=== PATIENT | female | born 1945 | race Caucasian/White ===

== ENCOUNTER → 2017-11-29 16:18 | Outpatient (CLI) | payer MEDICARE, OTHER, SELFPAY ==
--- NOTE | 2017-11-29 16:22 | DI.RAD.S_ITS ---
PROCEDURE: XR WRIST LT MIN 3V INDICATIONS: LEFT WRIST PAIN TECHNIQUE: 3 views of the wrist were acquired. COMPARISON: None. FINDINGS: Bones: No fractures or dislocations. No suspicious bony lesions. Scaphoid view: Not requested Soft tissues: No suspicious soft tissue calcifications. IMPRESSION: Normal wrist Dictated by: Vasquez Branch M.D. on 11/29/2017 at 16:48 Approved by: Vasquez Branch M.D. on 11/29/2017 at 16:50
== END ==
PROVIDERS: Family Provider Family Medicine; PCP Family Medicine; Visit Provider Family Medicine
DX: M25.532 Pain in left wrist (principal)
CPT/HCPCS: 73110

== ENCOUNTER → 2019-06-07 15:37 | Outpatient (CLI) | payer MEDICARE, OTHER, SELFPAY ==
--- NOTE | 2019-06-07 | DI.ECHO.S_ITS ---
[place] [facility]---------+ [facility] +---------+ : : [address] : : : : [id number] : : : : Phone: [phone]+ Echocardiogram Report + + :Name: TAYLA SANCHEZ Study Date: 06/07/2019 Height: 68 in : :[facility] Weight: 192 lb : : Gender: Female BSA: 2.0 m2 : :: 1945 Age: 74 yrs BP: 134/82 mmHg: :Reason For Study: MURMUR : : Performed By: [facility] Staff : :Referring: NIKKY THORNTON : + + Interpretation Summary 1) Normal left ventricular thickness, size, and systolic function (EF 60-65%). 2) There are no obvious focal wall motion abnormalities noted but poor endocardial definition reduces the sensitivity for the detection of such. 3) The right ventricle grossly appears normal in size with probable normal systolic function. 4) No significant valvular abnormalities. 5) No prior Echo available for comparison. Procedure: A two-dimensional transthoracic echocardiogram with color flow and Doppler was performed. The study quality was technically adequate. There is no prior echocardiogram noted for this patient. The patient was in normal sinus rhythm during the exam. Left Ventricle: The left ventricle is normal in size. There is normal left ventricular wall thickness. Left ventricular systolic function is normal. The ejection fraction is estimated to be 60-65%. There are no obvious focal wall motion abnormalities noted but poor endocardial definition reduces the sensitivity for the detection of such. Right Ventricle: The right ventricle is not well visualized. The right ventricle grossly appears normal in size with probable normal systolic function. Atria: The left atrial size is normal. Right atrial size is normal. The interatrial septum is intact with no evidence for an atrial septal defect. Mitral Valve: The mitral valve is normal in structure and function. There is no mitral regurgitation noted. Aortic Valve: The aortic valve is trileaflet. The aortic valve opens well. There is no aortic valve stenosis. No aortic regurgitation is present. Tricuspid Valve: The tricuspid valve is normal in structure and function. There is trace tricuspid regurgitation. Pulmonary artery pressures cannot be estimated because of the lack of a measurable TR jet velocity. Pulmonic Valve: The pulmonic valve is not well visualized. There is trace pulmonic regurgitation. Great Vessels: The aortic root is normal size. The dimensions of the ascending aorta are normal. The pulmonary artery is normal size. The IVC is of normal diameter and collapses greater than 50% with a sniff. This suggests a low right atrial pressure of 3 mm Hg. Pericardium/ Pleura There is no pericardial effusion. There is no pleural effusion. MMode/2D Measurements & Calculations LVIDd: 4.3 cm LVOT diam: 2.0 cm LVIDs: 2.9 cm Ao root diam: 2.8 cm FS: 32.3 % Aortic Jxn: 2.5 cm EPSS: 0.43 cm IVSd: 1.2 cm LVPWd: 1.00 cm LV bowden. diameter/BSA (cm/m^2): 2.1 LV sys. diameter/BSA (cm/m^2): 1.4 LA A2 area: 17.2 cm2 RA long axis: 3.9 cm LA A4 area: 12.4 cm2 RA area: 10.1 cm2 LA length (vol): 4.4 cm RA vol: 22.4 ml LA vol: 41.7 ml RA : 11.2 ml/m2 LA vol index: 20.8 ml/m2 TAPSE: 1.5 cm Doppler Measurements & Calculations Ao V2 max: 135.3 cm/sec LVOT Max Alejandro: 114.5 cm/sec Ao V2 mean: 97.1 cm/sec LV V1 max P.2 mmHg Ao max P.3 mmHg LV V1 VTI: 26.3 cm Ao mean P.2 mmHg ANGEL(I,D): 2.7 cm2 Ao V2 VTI: 31.2 cm ANGEL(V,D): 2.7 cm2 sev ratio: 0.84 ANGEL indexed to BSA (cm^2/m^2): 1.3 MV E max alejandro: 55.6 cm/sec PA V2 max: 81.8 cm/sec MV A max alejandro: 68.8 cm/sec PA V2 mean: 55.0 cm/sec MV E/A: 0.81 PA mean P.4 mmHg Med Peak E' Alejandro: 9.3 cm/sec PA Accel Time: 0.13 sec E/E' med: 6.0 Lat Peak E' Alejandro: 9.7 cm/sec E/E' lat: 5.7 E/e' average: 5.9 MV dec time: 0.28 sec SV(LVOT): 84.1 ml Reading Physician:04:49 PM
== END ==
PROVIDERS: Family Provider Family Medicine; PCP Family Medicine; Visit Provider Family Medicine
DX: R01.1 Cardiac murmur, unspecified (principal)
CPT/HCPCS: 93306

== ENCOUNTER → 2020-11-08 12:54 | Outpatient (CLI) | payer MEDICARE, OTHER, SELFPAY ==
--- NOTE | 2020-11-08 12:58 | DI.MRI.S_ITS ---
PROCEDURE: MR HEAD/BRAIN WO/W CON INDICATIONS: Migraine with aura, intractable TECHNIQUE: Noncontrast axial T1 spin echo, axial T2 fast spin echo, sagittal and axial FLAIR, coronal T2 fast spin echo, axial gradient echo, axial diffusion and ADC through the brain. After the administration of contrast, axial and coronal T1 spin echo with fat saturation through the brain. COMPARISON: [facility], CT, CT ENT SINUS WITHOUT CONTRAST, 06/14/2020, 11:02. [facility], CT, HEAD WITH AND WITHOUT CONTRAST, 03/04/2009, 8:29. FINDINGS: Image quality: Excellent. CSF spaces: Basal cisterns are patent. No extra-axial fluid collections. Ventricles are normal in size and shape. Brain: No midline shift. No intracranial bleeds or masses. No abnormal intracranial enhancement. There is cerebral volume loss for age. There is periventricular white matter chronic small vessel ischemic change. The brainstem appears normal. Diffusion-weighted images demonstrate no acute ischemic insults. No chronic ischemic insults. Normal intravascular flow voids are present. Skull and face: Calvarial marrow is normal in signal. Orbits appear normal. Note is made of bilateral lens replacements. Incidental note is made of hyperostosis frontalis. This is not considered to be pathologic in a woman of this age. Sinuses: Sinuses and mastoids appear clear. IMPRESSION: Unremarkable intracranial study, without an imaging explanation found for the patient's presenting history of headache. No masses or abnormal enhancement can be seen. Incidental note is made of: Hyperostosis frontalis Age-appropriate brain parenchymal volume loss Age-appropriate small vessel ischemic change Bilateral lens replacements Dictated by: Bernard Koroma M.D. on 11/08/2020 at 14:52 Approved by: Bernard Koroma M.D. on 11/08/2020 at 14:55
== END ==
PROVIDERS: Family Provider Family Medicine; PCP Family Medicine; Referring Provider Family Medicine; Visit Provider Family Medicine
DX: G43.119 Migraine with aura, intractable, without status migrainosus (principal); M85.2 Hyperostosis of skull
CPT/HCPCS: 70553

== ENCOUNTER → 2021-01-31 14:51 | Outpatient (CLI) | payer MEDICARE, OTHER, SELFPAY ==
--- NOTE | 2021-01-31 | DI.US.S_ITS ---
PROCEDURE: US ABDOMEN COMPLETE INDICATIONS: HEMATURIA, INTERSTITIAL CYSTITIS TECHNIQUE: Real-time scanning was performed of the abdominal and retroperitoneal organs, with image documentation. COMPARISON: [facility], US, ABDOMEN COMPLETE, 05/11/2013, 7:27. FINDINGS: Liver: Liver is normal in size and homogeneous in echotexture. Gallbladder: No gallstones identified. Normal gallbladder wall. No pericholecystic fluid. Negative sonographic Yadav sign. Biliary ducts: Intrahepatic bile ducts are non-dilated. Extrahepatic bile duct caliber measures 3.2 mm. Normal is 6-7 mm or less in diameter, or 10 mm or less post-cholecystectomy. Pancreas: Visualized portions of the pancreas are sonographically normal. Spleen: Spleen is normal in size and homogeneous in echotexture. Kidneys: Kidneys are normal in size and echotexture. Right kidney measures 12.4 cm long; left kidney measures 11.1 cm long. No hydronephrosis or nephrolithiasis. No solid masses. Aorta: Visualized aorta is normal in caliber at less than 3 cm. Iliacs: Proximal common iliac arteries are normal in caliber at less than 2.5 cm. IVC: Intrahepatic inferior vena cava is patent. Miscellaneous: No free abdominal fluid. IMPRESSION: No source for abdominal pain identified. Dictated by: Eddi Allen [facility] Interpreted: Vikas Mendez MD on 01/31/2021 at 16:19 Transcribed by: LARRY on 01/31/2021 at 16:21 Approved by: Naren Mendez M.D. on 02/04/2021 at 11:25
--- NOTE | 2021-01-31 | DI.RAD.S_ITS ---
PROCEDURE: XR LUMBAR SPINE 2-3V INDICATIONS: LOW BACK PAIN TECHNIQUE: 3 views of the lumbar spine were acquired. COMPARISON: None. FINDINGS: Bones: 5 [id number] vertebrae are present. Trace multilevel retrolisthesis. Severe multilevel disc degeneration, most notably at the L2-L3, L3-L4 and L5-S1 levels. Moderate L4-L5 and L5-S1 facet joint arthropathy. No vertebral body compression fractures. No suspicious bony lesions. Soft tissues: Overlying bowel gas pattern is normal. No suspicious soft tissue calcifications. IMPRESSION: Multilevel spondylosis. Dictated by: Eddi Allen [facility] Interpreted: Vikas Mendez MD on 01/31/2021 at 15:13 Transcribed by: LARRY on 01/31/2021 at 15:14 Approved by: Naren Mendez M.D. on 02/04/2021 at 11:26
== END ==
PROVIDERS: Family Provider Family Medicine; PCP Family Medicine; Referring Provider Internal Medicine; Visit Provider Internal Medicine
DX: N30.11 Interstitial cystitis (chronic) with hematuria (principal); M54.5 Low back pain; M47.896 Other spondylosis, lumbar region
CPT/HCPCS: 72100; 76700

== ENCOUNTER → 2021-02-07 09:39 | Outpatient (CLI) | payer MEDICARE, OTHER, SELFPAY ==
[2021-02-07 10:52] LABS: BUN Creatinine Ratio 29.2 (6-22); Blood Urea Nitrogen 19 mg/dL (7-17); Calcium 9.7 mg/dL (8.4-10.2); Carbon Dioxide 31 mmol/L (22-32); Chloride 102 mmol/L (98-107); Estimated Glomerular Filt Rate > 60.0 mL/min (>60); Glucose 97 mg/dL (80-110); HEMOLYSIS < 15 (0-50); Potassium 4.4 mmol/L (3.4-5.1); Sodium 139 mmol/L (137-145)
== END ==
PROVIDERS: Family Provider Family Medicine; PCP Family Medicine; Referring Provider Urology; Visit Provider Urology
DX: N39.0 Urinary tract infection, site not specified (principal); R10.9 Unspecified abdominal pain; R31.29 Other microscopic hematuria
CPT/HCPCS: 36415; 80048

== ENCOUNTER → 2021-02-10 15:31 | Outpatient (CLI) | payer MEDICARE, OTHER, SELFPAY ==
--- NOTE | 2021-02-10 15:32 | DI.CT.S_ITS ---
PROCEDURE: CT ABDOMEN PELVIS WO/W CON INDICATIONS: Microscopic hematuria,R flank pain,LLQ pain, UTIs TECHNIQUE: Optional 5 mm thick noncontrast images acquired from the diaphragm to the symphysis pubis. After the administration of intravenous contrast, 5 mm thick images acquired from the diaphragm to the symphysis pubis after a 10-minute delay. 2 mm thick coronal and sagittal reformats were then performed of the kidneys and ureters. For radiation dose reduction, the following was used: automated exposure control, adjustment of mA and/or kV according to patient size. COMPARISON: [facility], , US ABDOMEN COMPLETE, 01/31/2021, 14:42. FINDINGS: Image quality: Excellent. Lung bases: Lung bases are clear. Heart size is normal. Small hiatal hernia. Breast implant. Urinary system: Both kidneys are normal in size, without hydronephrosis or nephrolithiasis on pre-contrast images. No perinephric fat stranding. There is normal bilateral renal enhancement. Renal calyces appear normal in morphology when filled with contrast. Opacified portions of both ureters demonstrate normal caliber. No filling defect within the opacified portions of the ureters. A small portion of the left upper ureter is not opacified. Bladder wall thickness is normal. No calcified bladder stones. Other solid organs: Liver is normal in size and enhancement. Gallbladder is not distended. No calcified gallstones. Biliary system is non dilated. Pancreas enhances normally. Spleen is normal in size and enhancement. No adrenal nodules. Peritoneum and bowel: Bowel loops demonstrate normal wall thickness and caliber. Normal appendix. No free fluid or air. Nodes and vessels: No retroperitoneal or mesenteric adenopathy by size criteria. Aorta and inferior vena cava are normal in size. Abdominal wall: No ventral hernias. Pelvis: No pathologic free pelvic fluid. Anteverted uterus. No inguinal hernias or adenopathy. Bones: No suspicious bony lesions. DDD. No vertebral body compression fractures. IMPRESSION: 1. No kidney stones. No hydronephrosis. 2. No solid renal mass. 3. No upper urinary tract filling defect within the opacified portions. 4. Small hiatal hernia. Dictated by: Wood Coronado M.D. on 02/10/2021 at 16:37 Approved by: Wood Coronado M.D. on 02/10/2021 at 16:45
== END ==
PROVIDERS: Family Provider Family Medicine; PCP Family Medicine; Referring Provider Urology; Visit Provider Urology
DX: N39.0 Urinary tract infection, site not specified (principal); R10.32 Left lower quadrant pain; R10.9 Unspecified abdominal pain; R31.29 Other microscopic hematuria; K44.9 Diaphragmatic hernia without obstruction or gangrene
CPT/HCPCS: 74178; Q9967

== ENCOUNTER → 2021-06-23 10:21 | Outpatient (CLI) | payer MEDICARE, OTHER, SELFPAY ==
[2021-06-23 13:35] LABS: COVID19 -Nasal RAPID Negative (Negative)
== END ==
PROVIDERS: Family Provider Family Medicine; PCP Family Medicine; Visit Provider Nurse Practitioner Family
DX: Z20.822 Contact with and (suspected) exposure to COVID-19 (principal)
CPT/HCPCS: 87635; C9803

== ENCOUNTER 2021-06-24 08:00 | Day surgery (SDC) | payer MEDICARE, OTHER, SELFPAY ==
--- NOTE | 2021-06-24 | PATH_ITS ---
[facility] Accession Number: [id number] . 01 Material submitted: . colon - RANDOM COLON BIOPSIES . 01 Clinical history: . DX COLONOSCOPY . 02 Diagnosis: Random Colon, Biopsies: Mild melanosis coli. Negative for active or microscopic colitis. Negative for granulomata, dysplasia or malignancy. [facility] 06/27/2021 1050 Local . 02 Electronically signed: . Keanu Hutson MD, PhD, Pathologist NPI- [id number] . 01 Gross description: . RANDOM COLON BIOPSIES: Received in formalin are 2 fragment(s) of guerra, soft tissue measuring 0.3 x 0.2 x 0.2 cm to 0.2 x 0.2 x 0.2 cm submitted entirely in 1 cassette(s) /[facility] 06/25/2021 0844 Local . 02 Pathologist provided ICD-10: R15.9, R19.7, K63.89 . 02 CPT . 235356 Performed at: 01 [facility] [address], [place], [place] [id number] MD Praneeth Bull MD Phone: [phone] Performed at: 02 [facility] [address] [place], [place] [id number] MD Brenda Taylor MD Phone: [phone]
[2021-06-24 08:33] VITALS: BP 136/81; PULSE 73; RESP 16; TEMP 36.4; O2SAT 99; BMI 30.7
[2021-06-24] MEDS: SODIUM CHLORIDE 0.9% 1,000 ML 84 ML IV (08:53)
--- NOTE | 2021-06-24 09:01 | PM.HP.1 ---
History of Present Illness History of Present Illness Date Patient Seen: 06/24/21 Time Patient Seen: 09:01 Chief complaint: DX COLONSCOPY Narrative: I reviewed my note from April 21. No significant changes. Patient History Medical History Atrophic vaginitis Cancer of breast Chronic urinary tract infection History of breast cancer History of tobacco use Inflammatory bowel disease Interstitial cystitis Left lower quadrant abdominal pain Microscopic hematuria Recurrent urinary tract infection Right flank pain Vaginal pain Vaginal ulceration Surgical History H/O mastectomy History of breast biopsy History of knee replacement Family & Social History Family History Mother Cancer Social History: household members spouse Tobacco & Substance use: Smoking Status Former smoker alcohol intake current Substance Use Type does not use Meds Home Medications and Allergies Home Medications Medication Instructions Recorded Confirmed Type acetaminophen 500 mg tablet 500 mg PO DAILY tab 02/05/21 06/24/21 History (Tylenol Extra Strength) meloxicam 15 mg tablet 15 mg PO DAILY 02/05/21 06/24/21 History omeprazole 40 mg capsule,delayed 40 mg PO DAILY 02/05/21 06/24/21 History release spironolactone 50 mg tablet 50 mg PO DAILY 02/05/21 06/24/21 History zolpidem 5 mg tablet (Ambien) 2.5 mg PO BEDTIME tab 02/05/21 06/24/21 History phenazopyridine 99.5 mg tablet 99.5 mg PO TID 06/24/21 06/24/21 History Allergies Allergy/AdvReac Type Severity Reaction Status Date / Time Sulfa (Sulfonamide Allergy Mild Hives Verified 06/24/21 08:28 Antibiotics) levofloxacin Allergy Unknown Verified 06/24/21 08:28 codeine AdvReac Mild NAUSEA/VOMI Verified 06/24/21 08:28 TING Review of Systems Review of Systems ROS: Yes All systems reviewed with the patient and are negative except as otherwise documented Exam Vital Signs (past 8 hours): - 06/24/21 08:33 Temperature 97.5 F L Pulse Rate 73 Respiratory Rate 16 Blood Pressure 136/81 Pulse Oximetry 99 Oxygen Delivery Method Room Air Const General: cooperative and comfortable Orientation: alert HENMT Head: normocephalic Ears: external ears normal Nose: external nose normal Face and sinus: normal facial exam Mouth: oral mucosae normal Eyes General: appearance normal, both eyes and all related structures Neck Neck: normal visual inspection Chest Chest: normal inspection of the chest Resp Effort & Inspection: normal respiratory effort Cardio Rate: regular rate GI Inspection: normal to inspection Skin General: no rashes or lesions noted and No jaundice Neuro General: patient alert and moves all extremities Cognition: normal cognition Speech: speech normal Extrem General: no pedal edema Psych Appearance: grossly normal Assessment & Plan Assessment & Plan narrative: 76-year-old female with a history of diarrhea personal history of unknown histology colon polyps and some intermittent fecal seepage. Colonoscopy is pursued today. Time Spent With Patient Critical Care time: I spent a total of [] minutes of critical care time on this patient's care today; this time is exclusive of procedural time.
--- NOTE | 2021-06-24 10:11 | SUR.OPER ---
scope not innsuflating - changed scopes- original stat time 15 min prior
--- NOTE | 2021-06-24 10:34 | PM.OP.COLON ---
Operative Date/Time/Diagnoses Date of procedure: 06/24/21 Time of procedure: 10:35 Pre-op diagnosis: Diarrhea personal history of unknown histology colon polyps intermittent anal seepage Post-op diagnosis: same Procedure & Clinicians Study performed: Colonoscopy with biopsies Same procedure as scheduled: Yes Indications: Diarrhea personal history of unknown histology polyps and intermittent anal seepage Surgeon: Luiz Salazar Procedure Notes SCOAP/Timeout: Done Procedure in detail: After the risks and benefits were explained, written and verbal informed consent was obtained. The patient was brought into the procedure room and placed into the left lateral decubitus position. Please see nurse intermediate card tender sedation details. Digital rectal examination was accomplished. The scope was introduced into the patient and advanced under direct visualization to the cecum as identified by the appendiceal orifice and ileocecal valve. The scope was slowly withdrawn to carefully examine the mucosa for any defects or lesions. Comprehensive imaging was accomplished throughout the rectum including the dentate line. The colon was decompressed, the scope was then removed from the patient who tolerated the procedure well. Bowel prep adequate Initially the procedure was attempted with an adult colonoscope however the scope was malfunctioning and was not delivering CO2 insufflation as expected. We withdrew the scope swapped out for a 2nd adult colonoscope but could not advance beyond splenic flexure with this scope secondary to looping. We swapped out for a 3rd pediatric scope and with some difficulty we were able to navigate to cecum. Procedure time was prolonged secondary to colon tortuosity difficult defecation and technical difficulties with the original scope Scope withdrawal time: 6 minutes Sedation minutes: 41 Complications: none Impression: Tortuous colon as described above. No significant polyps mass lesions or inflammatory features identified throughout. Random colon biopsies were taken for exclusion of microscopic disease. Prior to initiation of sedation digital rectal examination was accomplished. This revealed acceptable resting anal sphincter tone. Patient was able to contract the external anal sphincter mechanism but this was subjectively somewhat weak no mass lesions detected. Endoscopic diagnosis 1. Challenging navigation 2. Slightly reduced external anal sphincter strength Post-procedure Plan for aftercare: 1. Await histopathology 2. Should diarrhea persist, intermittent Imodium can be attempted to reduce stool frequency and improved consistency. Disposition: PACU
[2021-06-24 10:37] VITALS: BP 123/67; PULSE 69; RESP 19; TEMP 36.2; O2SAT 96
[2021-06-24 10:42] VITALS: BP 117/68; PULSE 73; RESP 15; O2SAT 96
[2021-06-24 10:47] VITALS: BP 119/72; PULSE 70; RESP 19; O2SAT 98
[2021-06-24 10:53] VITALS: BP 119/70; PULSE 64; RESP 14; TEMP 36; O2SAT 99
== END 2021-06-24 11:07 | disposition home or self-care (01) ==
PROVIDERS: Family Provider Family Medicine; PCP Family Medicine; Referring Provider Internal Medicine Gastroenterology; Visit Provider Internal Medicine Gastroenterology
PROC: 0DJD8ZZ Inspection of Lower Intestinal Tract, Via Natural or Artificial Opening Endoscopic (ICD-10-PCS; CPT 45378; principal; 2021-06-24 10:00)
DX: R19.7 Diarrhea, unspecified (principal); R15.1 Fecal smearing; Z86.010 Personal history of colon polyps; K63.89 Other specified diseases of intestine
CPT/HCPCS: 45380; J2704

== ENCOUNTER → 2023-02-24 07:06 | Outpatient (CLI) | payer MEDICARE, OTHER, SELFPAY ==
--- NOTE | 2023-02-24 | DI.CT.S_ITS ---
PROCEDURE: CT KIDNEY URETER BLADDER (KUB) INDICATIONS: DYSURIA / HEMATURIA TECHNIQUE: Axial sections were acquired from the lung bases to the pubic symphysis. Coronal and sagittal reformats were performed. For radiation dose reduction, the following was used: automated exposure control, adjustment of mA and/or kV according to patient size. COMPARISON: None. FINDINGS: Image quality: Excellent. Lung bases: Unremarkable. Heart: No significant findings. URINARY: Right Kidney: No stones or hydronephrosis. Right Ureter: No hydroureter. Left Kidney: No stones or hydronephrosis. Left Ureter: No hydroureter. Bladder: Normal wall thickness. No stones. ABDOMEN: Liver: Unremarkable. Gallbladder: Unremarkable. Biliary ducts: Unremarkable. Pancreas: Unremarkable. Spleen: Unremarkable. Adrenal Glands: Unremarkable. Stomach and Bowel: Stomach, small bowel loops, and colon are unremarkable. Small hiatal hernia. Peritoneum: No abnormal intraperitoneal fluid. No free air. Ventral Wall: No hernia. Abdominal Nodes: No enlarged retroperitoneal or mesenteric lymph nodes. Vessels: Aorta and inferior vena cava are normal in size. PELVIS: Pelvic Organs: Unremarkable. Pelvic Nodes: Unremarkable. Miscellaneous: No inguinal hernias are seen. Bones: Degenerative disc disease, most prominent L2-3, with grade 1 retrolisthesis, disc osteophyte complex and facet arthrosis causing moderate spinal canal narrowing. IMPRESSION: No nephrolithiasis or hydronephrosis. Moderate spinal canal stenosis at L2-3. Dictated by: Madan Belle M.D. on 02/24/2023 at 8:27 Approved by: Madan Belle M.D. on 02/24/2023 at 8:32
== END ==
PROVIDERS: Family Provider Family Medicine; PCP Family Medicine; Referring Provider Family Medicine; Visit Provider Family Medicine
DX: R30.0 Dysuria (principal); R31.9 Hematuria, unspecified; N39.9 Disorder of urinary system, unspecified; M48.061 Spinal stenosis, lumbar region without neurogenic claudication; K44.9 Diaphragmatic hernia without obstruction or gangrene
CPT/HCPCS: 74176

== ENCOUNTER → 2023-04-19 09:16 | Outpatient (CLI) | payer MEDICARE, OTHER, SELFPAY ==
[2023-04-19 09:49] LABS: Appearance Urine UA CLEAR; Bilirubin Urine UA NEGATIVE (NEGATIVE); Color Urine UA YELLOW; Glucose Urine UA NEGATIVE (Negative); Ketones Urine UA NEGATIVE (NEGATIVE); Leukocyte Esterase Urine UA NEGATIVE (NEGATIVE); Nitrite Urine UA NEGATIVE (Negative); Occult Blood Urine UA NEGATIVE (Negative); Protein Urine UA NEGATIVE (Negative); Urobilinogen Urine UA 0.2 E.U./dL (0.2)
[2023-04-19 09:51] LABS: Bacteria Urine None Seen; Culture Indicated Urine Cult Not Indicated; RBC Urine None Seen (0-5/HPF); Squamous Epithelial Cell Urine None Seen (0-5/HPF); WBC Urine None Seen (0-5/HPF)
== END ==
PROVIDERS: Family Provider Family Medicine; PCP Family Medicine; Referring Provider Urology; Visit Provider Urology
DX: N39.0 Urinary tract infection, site not specified (principal)
CPT/HCPCS: 81001

== ENCOUNTER → 2023-07-15 08:54 | Outpatient (CLI) | payer MEDICARE, OTHER, SELFPAY ==
--- NOTE | 2023-07-15 08:57 | DI.US.S_ITS ---
PROCEDURE: US ABDOMEN LIMITED INDICATIONS: Elevated bilirubin TECHNIQUE: Real-time focused scanning was performed of the abdomen, with image documentation. COMPARISON: [facility], CT, CT KIDNEY URETER BLADDER (KUB), 02/24/2023, 7:19. [facility], US, US ABDOMEN COMPLETE, 01/31/2021, 14:42. FINDINGS: Evaluation of the liver is limited, secondary to limited windows. The liver demonstrates mildly enlarged size. The liver demonstrates generalized mildly increased echogenicity. This decreases ultrasound sensitivity for detection of hepatic masses. The IVC and the portal vein are patent. Likely sludge can be seen within the gallbladder. No shadowing stones are seen. The gallbladder wall is not thickened, measuring 3 mm or less. No specific pericholecystic fluid is seen. The sonographic Yadav sign is negative. There is no biliary dilatation, the common bile duct measures 3 mm. No significant pancreatic abnormality is seen on these images. Note is made that the pancreas is mildly echogenic. No abnormal free fluid can be seen. IMPRESSION: Mildly enlarged, mildly fatty liver. Sludge is seen within the gallbladder, without additional sonographic signs of cholecystitis. No biliary dilatation. Dictated by: Bernard Koroma M.D. on 07/15/2023 at 10:57 Approved by: Bernard Koroma M.D. on 07/15/2023 at 10:59
== END ==
LOC: US 08:55
PROVIDERS: Family Provider Family Medicine; PCP Family Medicine; Referring Provider Family Medicine; Visit Provider Family Medicine
DX: E80.6 Other disorders of bilirubin metabolism (principal); K76.0 Fatty (change of) liver, not elsewhere classified; K82.8 Other specified diseases of gallbladder
CPT/HCPCS: 76705

== ENCOUNTER → 2024-08-01 08:03 | Outpatient (CLI) | payer MEDICARE, OTHER, SELFPAY ==
--- NOTE | 2024-08-01 08:05 | DI.CT.S_ITS ---
PROCEDURE: CT SINUS SCREEN WO CON INDICATIONS: Other malaise TECHNIQUE: Noncontrast 3.0 mm axial images acquired from the frontal sinuses to the mid-sella, with coronal and sagittal reformats. For radiation dose reduction, the following was used: automated exposure control, adjustment of mA and/or kV according to patient size. COMPARISON: None. FINDINGS: Image quality: Excellent. Maxillary Sinuses: No bony remodeling or destruction. Sinuses are clear. Ethmoid Air Cells: No bony remodeling or destruction. Sinuses are clear. Sphenoid Sinuses: No bony remodeling or destruction. Sinuses are clear. Frontal Sinuses: No bony remodeling or destruction. Sinuses are clear. Ostiomeatal Complexes: Ostiomeatal complexes are patent. No Kathie cells. Miscellaneous: Visualized intra-orbital contents are normal. Lens replacements. No reynaldo bullosa or paradoxical turbinate curvature. No significant nasal septal deviation. IMPRESSION: The paranasal sinuses are clear. Dictated by: Cesar Hewitt M.D. on 08/01/2024 at 9:54 Approved by: Cesar Hewitt M.D. on 08/01/2024 at 9:59
== END ==
PROVIDERS: Family Provider Family Medicine; PCP Family Medicine; Referring Provider Family Medicine; Visit Provider Family Medicine
DX: J01.90 Acute sinusitis, unspecified (principal)
CPT/HCPCS: 70486

== ENCOUNTER 2025-04-04 13:08 | Observation (INO) | payer MEDICARE, OTHER, SELFPAY ==
[2025-04-04] VITALS (8 sets, daily range): BP systolic 130–154; BP diastolic 66–77; PULSE 56–73; RESP 15–22; TEMP 36.3–36.6; O2SAT 95–98; BMI 29.8; BMI 29.9
--- NOTE | 2025-04-04 13:29 | ED_ITS ---
HPI - Neuro Symptoms/Deficit General Chief Complaint: Neuro Symptoms/Deficit Stated Complaint: numbness in chin, arm, legs right side Time Seen by Provider: 04/04/25 13:18 Source: patient Mode of arrival: Family Vehicle History of Present Illness HPI Narrative: Patient here with . Has had intermittent 1 hour episodes of right facial numbness right arm and leg numbness. This is her 5th episode today. This episode started at 9:00 a.m. this morning but has now resolved. The right jaw area is nearly gone with the numbness. No headache no chest pain. No prior history of heart attack strokes or diabetes. Related Data Home Medications ?Medication ?Instructions ?Recorded ?Confirmed acetaminophen 500 mg tablet 500 mg PO DAILY 02/05/21 0 04/04/25 (Tylenol Extra Strength) meloxicam 15 mg tablet 15 mg PO DAILY 02/05/2103/13 zolpidem 5 mg tablet (Ambien) 2.5 mg PO BEDTIME 04/04/25 difluprednate 0.05 % eye drops 1 drp EYE-LEFT BID 03/1304/04/25 dorzolamide 22.3 mg-timolol 6.8 1 drp EYE-LEFT BID 04/04/25 mg/mL eye drops latanoprost 0.005 % eye drops 1 drp EYE-LEFT QPM 04/0404/04/25 valacyclovir 1 gram tablet 1,000 mg PO DAILY 04/04/25 04/04/25 Allergies Allergy/AdvReac Type Severity Reaction Status Date / Time Sulfa (Sulfonamide Allergy Mild Hives Verified 04/01/23 08:52 Antibiotics) levofloxacin Allergy Unknown Verified 04/01/23 08:52 Penicillins AdvReac Severe Diarrhea Verified 04/20/23 10:19 codeine AdvReac Mild NAUSEA/VOMI Verified 04/01/23 08:52 TING Review of Systems Review of Systems Narrative: GENERAL: Negative chills, fatigue, malaise, fever, sweats. HEENT: Negative sinus pain, ear pain, sore throat RESPIRATORY: Negative dyspnea, cough CARDIOVASCULAR: Negative chest pain, palpitations GASTROINTESTINAL: Negative vomiting, nausea, abdominal pain : Negative dysuria, frequency, hematuria MUSCULOSKELETAL: Negative muscle or bony pain SKIN: Negative rash, skin lesions NEUROLOGIC: Negative weakness, positive numbness ROS Unobtainable: All systems reviewed & are unremarkable except as noted in HPI and below Patient History Medical History (Updated 04/04/25 @ 18:22 by Kyle Anne MD) Herpes zoster of eye Migraine Asymptomatic microscopic hematuria Atrophic vaginitis Vaginal pain Recurrent urinary tract infection Vaginal ulceration History of breast cancer History of tobacco use Microscopic hematuria Left lower quadrant abdominal pain Right flank pain Interstitial cystitis Inflammatory bowel disease Chronic urinary tract infection Cancer of breast Surgical History (Updated 04/04/25 @ 18:23 by Kyle Anne MD) History of tonsillectomy History of knee replacement H/O mastectomy History of breast biopsy Family History (Updated 04/04/25 @ 18:23 by Kyle Anne MD) Mother Cancer CAD (coronary artery disease) Father Cirrhosis Social History marital status: household members: spouse Smoking Status: Former smoker alcohol intake: current caffeine: Yes (pepsi) Exam Narrative Exam Narrative: GENERAL: in no distress, not toxic not dyspneic HEAD: Normocephalic. EYES: Pupils equal round ENT: Mucous membranes moist. NECK: Trachea midline. CARDIOVASCULAR: Regular rate and rhythm RESPIRATORY: Clear to auscultation. Breath sounds equal bilaterally. No wheezes, rales, or rhonchi. GASTROINTESTINAL: Abdomen soft, non-tender EXTREMITIES: No gross deformities. BACK: No flank tenderness. NEURO: AOx4. 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 SKIN: Warm and dry PSYCH: Not anxious, is cooperative Initial Vital Signs Initial Vital Signs: Vital Signs Temperature 97.9 F 04/04/25 13:09 Pulse Rate 64 04/04/25 13:09 Respiratory Rate 16 04/04/25 13:09 Blood Pressure 151/75 H 04/04/25 13:09 Pulse Oximetry 97 04/04/25 13:09 Oxygen Delivery Method Room Air 04/04/25 13:09 Scores NIH Stroke Scale Level of Conciousness: Alert, keenly responsive Ask month/age: Answers both questions correctly. Open/close eyes, close hand: Performs both tasks correctly Best gaze horizontal: Normal Visual johnson: No visual loss Facial palsy: Normal symetrical movement Left arm drift: No drift for full 10 sec Right arm drift: No drift for full 10 sec Left leg drift: No drift for full 5 sec Right leg drift: No drift for full 5 sec Limb ataxia: Absent Sensory on face/arms/legs: Normal, no sensory loss Best language: No aphasia, normal Dysarthria: Normal Extinction or inattention: No abnormality Total NIH Stroke scale score: 0 Course Orders Ordered: Meloxicam (Meloxicam 7.5 Mg Tablet) 15 mg PO DAILY [facility] Last Admin: 04/05/25 08:39 Dose: 15 mg Documented By: JASON Naloxone HCl (Naloxone 0.4 Mg/Ml Vial) 0.2 mg IV Q2MIN PRN PRN Reason: Opiate Reversal Sodium Chloride (Sodium Chloride 0.9% Flush) 10 ml IV BID [facility] Last Admin: 04/05/25 08:42 Dose: 10 ml Documented By: JASON Sumatriptan Succinate (Sumatriptan 25 Mg Tablet) 50 mg PO Q2H PRN PRN Reason: Face Numbness Last Admin: 04/05/25 08:38 Dose: 50 mg Documented By: Admin: 04/04/25 20:33 Dose: 50 mg Documented By: PAKO Valacyclovir HCl (Valacyclovir 500 Mg Tablet) 1,000 mg PO DAILY [facility] Last Admin: 04/05/25 08:39 Dose: 1,000 mg Documented By: JASON Zolpidem Tartrate (Zolpidem 5 Mg Tablet) 2.5 mg PO BEDTIME [facility] Last Admin: 04/04/25 22:15 Dose: 2.5 mg Documented By: PAKO Discontinued Medications Sodium Chloride (Normal Saline 0.9%) 500 mls @ 1,000 mls/hr IV BOLUS ONE Stop: 04/04/25 15:27 Last Admin: 04/04/25 18:35 Dose: Not Given Documented By: TIM Vital Signs Vital signs: Vital Signs - 8 hr 04/04/25 13:09 04/04/25 13:13 04/04/25 13:14 Temperature 97.9 F Pulse Rate 64 73 73 Respiratory Rate 16 Blood Pressure 151/75 H Pulse Oximetry 97 97 98 Oxygen Delivery Method Room Air 04/04/25 13:14 04/04/25 13:30 04/04/25 13:30 Temperature Pulse Rate 57 L Respiratory Rate 22 Blood Pressure 151/75 H 138/74 Pulse Oximetry 96 Oxygen Delivery Method Room Air 04/04/25 14:01 04/04/25 14:09 04/04/25 14:09 Temperature Pulse Rate 63 60 Respiratory Rate 17 Blood Pressure 153/71 H Pulse Oximetry 98 96 Oxygen Delivery Method Room Air 04/04/25 14:30 04/04/25 14:30 Temperature Pulse Rate 56 L Respiratory Rate 18 Blood Pressure 154/66 H Pulse Oximetry 95 Oxygen Delivery Method MDM - Neuro Symptoms/Deficit Lab Data 04/04/25 13:25 04/04/25 13:25 Labs: Lab Results 04/04/25 04/04/25 Range/Units 13:25 13:57 WBC 9.2 (4.5-11.0) X10^3/uL RBC 4.85 (4.0-5.2) X10^6/uL Hgb 15.0 (12.0-16.0) g/dL Hct 44.2 (36-46) % MCV 91.1 (80-100) fL MCH 30.9 (26-34) PG MCHC 34.0 (30-36) % RDW 14.3 (11.6-14.8) % Plt Count 188 (150-400) X10^3/uL Neut % (Auto) 73.8 (50-75) % Lymph % (Auto) 19.4 L (25-40) % Vil[place] % (Auto) 5.5 (3-14) % Eos % (Auto) 1.0 L (2-4) % Baso % (Auto) 0.3 (0-2) % Neut # (Auto) 6800 (8978-9647) /uL Lymph # (Auto) 1800 (7282-9680) /uL [place] # (Auto) 500 (0-900) /uL Eos # (Auto) 100 (0-450) /uL Baso # (Auto) 0 (0-100) /uL PT 10.6 (9.4-12.5) SECONDS INR 0.9 (0.9-1.3) APTT 27 (25.1-36.5) SECONDS Sodium 138 (137-145) mmol/L Potassium 4.1 (3.4-5.1) mmol/L Chloride 105 (98-107) mmol/L Carbon Dioxide 26 (22-32) mmol/L BUN 18 H (7-17) mg/dL Creatinine 0.69 (0.52-1.04) mg/dL Estimated GFR > 60 (>60) mL/min BUN/Creatinine Ratio 26.1 H (6-22) Glucose 103 H (70-99) mg/dL Calcium 9.0 (8.4-10.2) mg/dL Total Bilirubin 0.8 (0.2-1.3) mg/dL AST 29 (14-36) IU/L ALT 20 (<35) IU/L Alkaline Phosphatase 84 (38-126) U/L Total Creatine Kinase 60 (30-135) U/L Troponin I < 0.012 (0.01-0.034) ng/mL Total Protein 7.0 (6.3-8.2) g/dL Albumin 4.3 (3.5-5.0) g/dL Globulin 2.7 (1.7-4.1) g/dL Albumin/Globulin Ratio 1.6 (1.0-2.8) Urine Color Yellow Urine Appearance Clear Urine pH 6.0 (4.5-8.0) Ur Specific Liberal 1.010 (1.000-1.035) Urine Protein Negative (Negative) Urine Glucose (UA) Negative (Negative) g/dL Urine Ketones Negative (NEGATIVE) Urine Occult Blood Negative (Negative) Urine Nitrate Negative (Negative) Urine Bilirubin Negative (NEGATIVE) Urine Urobilinogen 1.0 (0.2) E.U./dL Ur Leukocyte Esterase Negative (NEGATIVE) Urine RBC 0-1/hpf (0-5/HPF) Urine WBC 0-1/hpf (0-5/HPF) Ur Squamous Epith Cells 0-1 /hpf (0-5/HPF) Urine Bacteria Occasional (0-1) (None) Urine Mucus 1+ H (Negative) Ur Culture Indicated? Cult not indicated Vol Urine Centrifuged 10ml (spun) Imaging Data CT scan - head: Radiologist's Impression: [address] [address] [address] Scan Report Signed Patient: Berkley Handley MR#: [id number] : 1945 Acct:[id number] Age/Sex: 79 / F Date of Service: 04/04/25 Loc: ED Accession Number: [id number] Procedure: CT head/brain wo con Ordering Provider: Tonio Gill MD PROCEDURE: CT HEAD/BRAIN WO CON INDICATIONS: Right side numbness TECHNIQUE: Noncontrast 4.5 mm thick angled axial sections acquired from the foramen magnum to the vertex, with coronal and sagittal reformats. For radiation dose reduction, the following was used: automated exposure control, adjustment of mA and/or kV according to patient size. COMPARISON: None. FINDINGS: Image quality: Diagnostic. CSF spaces: Basal cisterns are patent. No extra-axial fluid collections. The ventricles are symmetric in size and shape. Brain: No intracranial bleeds or mass effect. There is cerebral volume loss, with resultant ventricular and sulcal prominence. There are periventricular and deep white matter chronic small vessel ischemic changes. There is intracranial internal carotid artery atherosclerosis. Skull and face: Incidental note made of the presence of hyperostosis frontalis. Calvarium and visualized facial bones appear intact, without suspicious lesions. Sinuses: Visualized sinuses and mastoids are clear. IMPRESSION: No acute intracranial pathology. Dictated by: Dino Williamson M.D. on 04/04/2025 at 13:57 Approved by: Dino Williamson M.D. on 04/04/2025 at 13:59 CTA - brain/neck: Radiologist's Impression: [place] [address] CT Scan Report Signed Patient: Berkley Handley MR#: [id number] : 1945 Acct:[id number] Age/Sex: 79 / F Date of Service: 04/04/25 Loc: ED Accession Number: [id number] Procedure: CT angio head and neck Ordering Provider: Tonio Gill MD PROCEDURE: CT ANGIO HEAD AND NECK INDICATIONS: Right side numbness TECHNIQUE: After the administration of intravenous contrast, 1 mm thick sections acquired from the aortic arch through the [place] of [place]. 3-dimensional brnzbib-lpuzolgzw-elmnszmity (MIP) and/or volume rendering reformats were acquired of the central intracranial vasculature and neck separately. For radiation dose reduction, the following was used: automated exposure control, adjustment of mA and/or kV according to patient size. COMPARISON: None. FINDINGS: Image quality: Diagnostic. Cerebral CT Angiogram: Internal carotid arteries: No acute findings. Intracranial ICA are patent with no significant stenosis. No occlusion. No aneurysm. Anterior cerebral arteries: Unremarkable. No significant stenosis. No occlusion. No aneurysm. Middle cerebral arteries: Unremarkable. No significant stenosis. No occlusion. No aneurysm. Posterior cerebral arteries: Unremarkable. No significant stenosis. No occlusion. No aneurysm. Basilar artery: Unremarkable. No significant stenosis. No occlusion. No aneurysm. Vertebral arteries: Unremarkable as visualized. Dural venous sinuses: Unremarkable given phase of enhancement. Other: Arterial phase appearance of the brain parenchyma is unremarkable. Neck CT Angiogram: Internal carotid arteries: Unremarkable. No significant stenosis. No dissection or occlusion. Common carotid arteries: Unremarkable. No significant stenosis. No dissection or occlusion. External carotid arteries: Unremarkable. No occlusion. Vertebral arteries: Unremarkable. No significant stenosis. No dissection or occlusion. Aortic Arch and Mediastinum: Partially visualized aortic arch unremarkable without evidence of aneurysm. Origins of the great vessels unremarkable. Other: Arterial phase soft tissues of the neck and chest are unremarkable. IMPRESSION: No significant intracranial arterial abnormality is seen. No significant abnormality is seen within the arteries of the neck. Any quantitative measurements of stenosis were performed using NASCET criteria. Dictated by: Dnio Williamson M.D. on 04/04/2025 at 13:59 Approved by: Dino Williamson M.D. on 04/04/2025 at 14:01 [facility] Narrative Medical decision making narrative: Patient here with . Has had intermittent 1 hour episodes of right facial numbness right arm and leg numbness. This is her 5th episode today. This episode started at 9:00 a.m. this morning but has now resolved. The right jaw area is nearly gone with the numbness. No headache no chest pain. No prior history of heart attack strokes or diabetes. MDM After history and exam, CT head CT angiogram head and neck normal saline EKG CBC CMP PT INR PTT troponin Differential considered: Includes but not limited to TIA stroke Medical records reviewed: No recent visit for this complaint Lab Test results independently reviewed as above. Pertinent findings: WBC 9.2 hemoglobin 15 hematocrit 44, sodium 138 potassium 4.1 BUN 18 creatinine 0.69 troponin less than 0.012 Independently reviewed EKG sinus rhythm rate [address]-elevation or depression Imaging studies independently reviewed: CT head CT angiogram head and neck no acute finding Consultations: 2:43 p.m.. Spoke with hospitalist, Dr. Anne, will admit patient Re-evaluations: 2:30 p.m.. Updated patient results. She does agree and understand need for admission. We will need balance workup for TIA Discussion: Appropriate for admission for balance workup for TIA. Including MRI and echocardiogram, no neurology consult indicated at this time. Symptoms have resolved. Patient outside window for TNK and in addition symptoms have resolved. Diagnosis: TIA Stroke Core Measures Exclusion Criteria TPA in CVA: Symptom Onset >3 or 4.5 Hours Discharge Plan Departure Patient Disposition: Admitted as Observation Clinical Impression: Brain TIA Admit Date/Time: 04/04/25 14:44 Admit Provider: Kyle Anne
[2025-04-04 13:42] LABS: Add Manual Diff / Slide Review NO; Hematocrit 44.2 % (36-46); Hemoglobin 15.0 g/dL (12.0-16.0); Lymphocytes Absolute Auto 1800 /uL (1100-4500); Mean Corpuscular HGB Conc 34.0 % (30-36); Mean Corpuscular Hemoglobin 30.9 PG (26-34); Mean Corpuscular Volume 91.1 fL (80-100); Platelet Count 188 X10^3/uL (150-400)
[2025-04-04 13:49] LABS: INR 0.9 (0.9-1.3); Prothrombin Time 10.6 SECONDS (9.4-12.5)
[2025-04-04 13:52] LABS: PTT Partial Thromboplastin Tim 27 SECONDS (25.1-36.5)
[2025-04-04 13:54] LABS: Alanine Aminotransferase 20 IU/L (<35); Albumin 4.3 g/dL (3.5-5.0); Albumin Globulin Ratio 1.6 (1.0-2.8); Alkaline Phosphatase 84 U/L (38-126); Blood Urea Nitrogen 18 mg/dL (7-17); Calcium 9.0 mg/dL (8.4-10.2); Carbon Dioxide 26 mmol/L (22-32); Chloride 105 mmol/L (98-107); Creatine Kinase 60 U/L (30-135); Estimated Glomerular Filt Rate > 60 mL/min (>60); Globulin 2.7 g/dL (1.7-4.1); Glucose 103 mg/dL (70-99); HEMOLYSIS 42 (0-50); Potassium 4.1 mmol/L (3.4-5.1); Sodium 138 mmol/L (137-145); Total Protein 7.0 g/dL (6.3-8.2)
[2025-04-04 14:05] LABS: Troponin I < 0.012 ng/mL (0.01-0.034)
[2025-04-04 14:15] LABS: Appearance Urine UA CLEAR; Bilirubin Urine UA NEGATIVE (NEGATIVE); Color Urine UA YELLOW; Glucose Urine UA NEGATIVE (Negative); Ketones Urine UA NEGATIVE (NEGATIVE); Leukocyte Esterase Urine UA NEGATIVE (NEGATIVE); Nitrite Urine UA NEGATIVE (Negative); Occult Blood Urine UA NEGATIVE (Negative); Protein Urine UA NEGATIVE (Negative); Specific Gravity Urine UA 1.010 (1.000-1.035); Urobilinogen Urine UA 1.0 E.U./dL (0.2)
[2025-04-04 14:17] LABS: pH Urine UA 6.0 (4.5-8.0)
[2025-04-04 14:26] LABS: Culture Indicated Urine Cult Not Indicated
--- NOTE | 2025-04-04 14:36 | EKG_ITS ---
[address] [address] [place] [address] Test Date: 2025-04-04 Pat Name: Berkley Handley Department: [facility] Room: Gender: Female Financial Services Rep: RUDY : 1945 Requested By: Order Number: [id number] Reading MD: Joshua Anne Measurements Intervals [place] Rate: 63 P: 49 NM: 158 QRS: -30 QRSD: 100 T: 32 QT: 426 QTc: 435 Interpretive Statements Sinus rhythm with occasional premature ventricular complexes Left axis deviation Moderate voltage criteria for LVH, may be normal variant ( R in aVL , Blake product ) Electronically Signed On 04-05-2025 7:01:37 PDT by Joshua Anne
--- NOTE | 2025-04-04 17:17 | DI.ECHO.S_ITS ---
[facility]+ [facility] : : [address] : : [place] : : [address] : : Phone: [phone] Echocardiogram Report + + :Name: TAYLA SANCHEZ Study Date: 04/05/2025 Height: 68 in : :[facility] ReadingLocation: Weight: 199 lb : : Gender: Female BSA: 2.0 m2 : :: 1945 Age: 79 yrs BP: 137/80 mmHg: :Reason For Study: TIA : :Ordering Physician: ABHIJIT, : :NAZARIO Garcia Performed By: Henry Downs : :Referring: NAZARIO LACEY : + + Interpretation Summary Technically difficult study secondary to poor acoustic windows. Intracardiac echo contrast utilized. - The left ventricular contractility is normal. Estimated ejection fraction is greater than 55% with no segmental wall motion abnormalities. Mild concentric LVH. Normal diastolic function. - The right ventricle contractility is grossly normal in limited views. - The right atrium was not well-visualized. All other cardiac chambers appears to be grossly normal in size. - No significant valvular abnormalities noted on Doppler interrogation. - No obvious intracardiac shunts. - No obvious intracardiac masses nor thrombi. - No hemodynamically significant pericardial effusion. - Low right-sided filling pressures. - Mildly dilated ascending thoracic aorta without obvious dissection. Conclusion: Normal biventricular systolic function without obvious valvular abnormalities. When compared with previous echocardiogram, no significant changes have occurred. Procedure: A two-dimensional transthoracic echocardiogram with color flow and Doppler was performed. A contrast injection of Definity was performed to improve assessment of LV function. The study quality was technically difficult. Comparison is made with the echocardiogram of 06/07/2019. The patient was in normal sinus rhythm during the exam. Left Ventricle: The left ventricle is normal in size. Left ventricular wall thickness is mildly increased. There is no ventricular septal defect visualized. The ejection fraction is estimated to be 55-60%. There are no focal wall motion abnormalities. Diastolic parameters suggest probable normal left ventricular diastolic function and normal filling pressures. Right Ventricle: The right ventricle grossly appears normal in size with probable normal systolic function. Atria: The left atrial size is normal. Right atrium not well visualized. The interatrial septum is not well visualized. Mitral Valve: There is mild mitral annular calcification. The mitral valve leaflets are mildly calcified. There is no mitral regurgitation noted. Aortic Valve: The aortic valve is not well visualized. No aortic regurgitation is present. Tricuspid Valve: The tricuspid valve is not well visualized. There is a trace or physiologic amount of tricuspid regurgitation. Pulmonic Valve: The pulmonic valve is not well visualized. There is no pulmonic valvular regurgitation. Great Vessels: The aortic root is normal size. The ascending aorta is mildly enlarged. The pulmonary is not well visualized. The IVC is of normal diameter and collapses greater than 50% with a sniff. This suggests a low right atrial pressure of 3 mm Hg. Pericardium/ Pleura There is no pericardial effusion. MMode/2D Measurements & Calculations LVIDd: 3.4 cm LVOT diam: 1.9 cm LVIDs: 2.5 cm Ao root diam: 3.0 cm FS: 24.9 % asc Aorta Diam: 4.1 cm EPSS: 0.88 cm Ao Arch Diam (Prox Trans): 1.6 cm IVSd: 1.2 cm LVPWd: 1.1 cm LV bowden. diameter/BSA (cm/m^2): 1.7 LV sys. diameter/BSA (cm/m^2): 1.2 LA A2 area: 16.2 cm2 IVC diam: 1.9 cm LA A4 area: 19.8 cm2 LA length (vol): 5.0 cm LA vol: 54.3 ml LA vol index: 26.6 ml/m2 Doppler Measurements & Calculations Ao V2 max: 155.3 cm/sec LVOT Max Alejandro: 105.0 cm/sec Ao V2 mean: 107.0 cm/sec LV V1 max P.4 mmHg Ao max P.7 mmHg LV V1 VTI: 25.2 cm Ao mean P.1 mmHg ANGEL(I,D): 2.1 cm2 Ao V2 VTI: 36.2 cm ANGEL(V,D): 2.0 cm2 sev ratio: 0.69 ANGEL indexed to BSA (cm^2/m^2): 1.0 MV E max alejandro: 61.7 cm/sec TR max alejandro: 247.8 cm/sec MV A max alejandro: 76.9 cm/sec TR max P.6 mmHg MV E/A: 0.80 PA V2 max: 118.0 cm/sec Med Peak E' Alejandro: 6.7 cm/sec PA V2 mean: 77.6 cm/sec E/E' med: 9.2 PA mean P.7 mmHg Lat Peak E' Alejandro: 8.2 cm/sec PA pr(Accel): 41.3 mmHg E/E' lat: 7.6 E/e' average: 8.4 MV dec time: 0.28 sec SV(LVOT): 75.2 ml Reading Physician:MARIVEL
--- NOTE | 2025-04-04 17:19 | PM.HP.1 ---
History of Present Illness History of Present Illness Date Patient Seen: 04/04/25 Time Patient Seen: 17:19 Chief complaint: numbness in chin, arm, legs right side Narrative: This is a 79-year-old female with a history of chronic UTI, interstitial cystitis, migraine headaches, IBD and breast cancer who presents with recurrent episodes of numbness in the right side of her face, the right upper arm and the right upper leg. This began just over 1 week ago. It seemed to become more frequent when she was enjoying a tourist trip to [place] last week and then in the last 2 days became somewhat stronger. Each episode lasts up to 2 hours and just kind of fades away on its own. At 1 point she felt that her right hand fingers were ?lifting up? on their own. She has also had increasing migraine headaches. She gets visual aura with those but says she has never had extremity or facial numbness with migraines before. She is on Nurtec for migraines. Also interesting is a recent history of left facial and ocular shingles infection. She has been on valacyclovir for 2-3 months and those symptoms seemed to be resolved. Two months ago she tripped and fell hitting the front of her head on a porch railing. She recalls having an evaluation in the ED in [place] at that time. Her CT head today shows no signs of acute bleed or mass. Her stroke score has been 0. Her blood pressure has been 151/75. She has no history of diabetes mellitus, hyperlipidemia or hypertension. She is alert and oriented x3. No apparent distress. Pupils are equally round and reactive to light and accommodation. Extraocular muscles are intact. Sclerae are pink and nonicteric. No signs of dendritic ulceration or redness on the left eye. There is a well-healed scar on the nasal side of the right eyebrow. Throat looks normal. No lymph nodes are felt head, neck, supraclavicular area. There is no thyromegaly. JVD is less than 6 cm. No carotid bruits are heard. Heart is regular rate and rhythm without murmur. Lungs are clear to auscultation bilaterally. Abdomen is soft, bowel sounds positive, nontender, no organomegaly. Extremities have no ankle edema. Neurologic exam: Motor function is remarkable for being 5/5 in both lower extremities but only a steam pipe fitter strength of 3/5 on the right and 4/5 on the left. Cranial nerves 2-12 test intact. There is no discernible asymmetry in sensation on the face, the arms, the hands, the feet or the legs. Deep tendon reflexes are symmetric. Finger to nose pointing is normal. Dysmetria testing of the lower extremities is normal. Reflexes are somewhat hyperactive on the left leg compared to the right leg. This difference seems to fatigue with repetition. There is no tremor. Assessment and plan: Possible TIA, present on admission. Active. -symptoms are quite atypical, raising suspicion for alternative diagnosis including brain mass, migraine equivalent, zoster encephalitis. -echocardiogram and brain MRI pending -check lipids -monitor blood pressure carefully -if symptoms recur we will trial her on Imitrex as these episodes of numbness have escalated along with a recent escalation in migraine headaches. -consider LP for CSF zoster studies. -she has an upcoming outpatient neurology appointment due to recent escalation of migraines. Migraine headaches, present on admission. Active. -Nurtec at home -trial of Imitrex -follow up with Neurology next week Recent episode of ocular zoster, present on admission. Chronic. -continue valacyclovir DVT prevention -recent extended flight back from [place] without signs or symptoms of PE/DVT. -SCD while in bed. She is quite mobile. Her is her backup decision maker. [facility] Medical History (Updated 04/04/25 @ 18:22 by Kyle Anne MD) Herpes zoster of eye Migraine Asymptomatic microscopic hematuria Atrophic vaginitis Vaginal pain Recurrent urinary tract infection Vaginal ulceration History of breast cancer History of tobacco use Microscopic hematuria Left lower quadrant abdominal pain Right flank pain Interstitial cystitis Inflammatory bowel disease Chronic urinary tract infection Cancer of breast Surgical History (Updated 04/04/25 @ 18:23 by Kyle Anne MD) History of tonsillectomy History of knee replacement H/O mastectomy History of breast biopsy Family History (Updated 04/04/25 @ 18:23 by Kyle Anne MD) Mother Cancer CAD (coronary artery disease) Father Cirrhosis Social History marital status: household members: spouse Smoking Status: Former smoker alcohol intake: current caffeine: Yes (pepsi) Meds Home Medications and Allergies Home Medications ?Medication ?Instructions ?Recorded ?Confirmed ?Type acetaminophen 500 mg tablet 500 mg PO DAILY 02/05/21 04/04/25 History (Tylenol Extra Strength) meloxicam 15 mg tablet 15 mg PO DAILY 02/05/21 04/04/25 History zolpidem 5 mg tablet (Ambien) 2.5 mg PO BEDTIME 02/05/21 04/04/25 History valacyclovir 1 gram tablet 1,000 mg PO DAILY 04/04/25 04/04/25 History Allergies Allergy/AdvReac Type Severity Reaction Status Date / Time Sulfa (Sulfonamide Allergy Mild Hives Verified 04/01/23 08:52 Antibiotics) levofloxacin Allergy Unknown Verified 04/01/23 08:52 Penicillins AdvReac Severe Diarrhea Verified 04/20/23 10:19 codeine AdvReac Mild NAUSEA/VOMI Verified 04/01/23 08:52 TING Review of Systems Review of Systems Narrative: Positive for right facial numbness, right upper arm numbness, right upper leg numbness, migraine headaches and left eye zoster infection. Negative for fevers, chills, sweats, chest pain, coughing, palpitation, nausea, vomiting, abdominal pain, dysuria, joint pain, rashes, new allergies. Exam Vital Signs (past 8 hours): - 04/04/25 13:09 04/04/25 13:13 04/04/25 13:14 Temperature 97.9 F Pulse Rate 64 73 73 Respiratory Rate 16 Blood Pressure 151/75 H Pulse Oximetry 97 97 98 Oxygen Delivery Method Room Air 04/04/25 13:14 04/04/25 13:30 04/04/25 13:30 Temperature Pulse Rate 57 L Respiratory Rate 22 Blood Pressure 151/75 H 138/74 Pulse Oximetry 96 Oxygen Delivery Method Room Air 04/04/25 14:01 04/04/25 14:09 04/04/25 14:09 Temperature Pulse Rate 63 60 Respiratory Rate 17 Blood Pressure 153/71 H Pulse Oximetry 98 96 Oxygen Delivery Method Room Air 04/04/25 14:30 04/04/25 14:30 Temperature Pulse Rate 56 L Respiratory Rate 18 Blood Pressure 154/66 H Pulse Oximetry 95 Oxygen Delivery Method Oxygen Delivery Method Room Air Objective Labs 04/04/25 13:25 04/04/25 13:25 Labs: Laboratory Results - last 24 hr 04/04/25 04/04/25 13:25 13:57 WBC 9.2 RBC 4.85 Hgb 15.0 Hct 44.2 MCV 91.1 MCH 30.9 MCHC 34.0 RDW 14.3 Plt Count 188 Neut % (Auto) 73.8 Lymph % (Auto) 19.4 L [place] % (Auto) 5.5 Eos % (Auto) 1.0 L Baso % (Auto) 0.3 Neut # (Auto) 6800 Lymph # (Auto) 1800 [place] # (Auto) 500 Eos # (Auto) 100 Baso # (Auto) 0 PT 10.6 INR 0.9 APTT 27 Sodium 138 Potassium 4.1 Chloride 105 Carbon Dioxide 26 BUN 18 H Creatinine 0.69 Estimated GFR > 60 BUN/Creatinine Ratio 26.1 H Glucose 103 H Calcium 9.0 Total Bilirubin 0.8 AST 29 ALT 20 Alkaline Phosphatase 84 Total Creatine Kinase 60 Troponin I < 0.012 Total Protein 7.0 Albumin 4.3 Globulin 2.7 Albumin/Globulin Ratio 1.6 Urine Color Yellow Urine Appearance Clear Urine pH 6.0 Ur Specific [place] 1.010 Urine Protein Negative Urine Glucose (UA) Negative Urine Ketones Negative Urine Occult Blood Negative Urine Nitrate Negative Urine Bilirubin Negative Urine Urobilinogen 1.0 Ur Leukocyte Esterase Negative Urine RBC 0-1/hpf Urine WBC 0-1/hpf Ur Squamous Epith Cells 0-1 /hpf Urine Bacteria Occasional (0-1) Urine Mucus 1+ H Ur Culture Indicated? Cult not indicated Vol Urine Centrifuged 10ml (spun) Assessment & Plan Time-Based Coding :: [TOTAL MINUTES] spent with patient and on the chart (including review of chart, obtaining history, exam, reviewing outside data, placing orders, documenting exam and treatment plan, and counseling patient) on [DATE]. Quality VTE Deep Vein Thrombosis/Pulmonary Embolism Present on Admission: No
[2025-04-04] MEDS: ZOLPIDEM 5 MG TABLET 2.5 MG PO (22:15)
[2025-04-05] VITALS: BP 130/74; PULSE 56; RESP 14; TEMP 36.2; O2SAT 97
[2025-04-05 03:10] VITALS: BP 137/80; PULSE 59; RESP 18; TEMP 36.3; O2SAT 98
[2025-04-05 06:14] LABS: Cholesterol 164 mg/dL (140-199); HDL Cholesterol 46 mg/dL (40-60); Triglycerides 100 mg/dL (35-150)
[2025-04-05 07:00] VITALS: BP 124/88; PULSE 58; RESP 16; TEMP 36.1; O2SAT 98
--- NOTE | 2025-04-05 07:04 | PM.DS.1 ---
History of Present Illness History of Present Illness Chief complaint: numbness in chin, arm, legs right side Narrative: This is a 79-year-old female with a history of chronic UTI, interstitial cystitis, migraine headaches, IBD and breast cancer who presents with recurrent episodes of numbness in the right side of her face, the right upper arm and the right upper leg. This began just over 1 week ago. It seemed to become more frequent when she was enjoying a tourist trip to [place] last week and then in the last 2 days became somewhat stronger. Each episode lasts up to 2 hours and just kind of fades away on its own. At 1 point she felt that her right hand fingers were ?lifting up? on their own. She has also had increasing migraine headaches. She gets visual aura with those but says she has never had extremity or facial numbness with migraines before. She is on Nurtec for migraines. Also interesting is a recent history of left facial and ocular shingles infection. She has been on valacyclovir for 2-3 months and those symptoms seemed to be resolved. Two months ago she tripped and fell hitting the front of her head on a porch railing. She recalls having an evaluation in the ED in [place] at that time. Her CT head today shows no signs of acute bleed or mass. Her stroke score has been 0. Her blood pressure has been 151/75. She has no history of diabetes mellitus, hyperlipidemia or hypertension. She is alert and oriented x3. No apparent distress. Pupils are equally round and reactive to light and accommodation. Extraocular muscles are intact. Sclerae are pink and nonicteric. No signs of dendritic ulceration or redness on the left eye. There is a well-healed scar on the nasal side of the right eyebrow. Throat looks normal. No lymph nodes are felt head, neck, supraclavicular area. There is no thyromegaly. JVD is less than 6 cm. No carotid bruits are heard. Heart is regular rate and rhythm without murmur. Lungs are clear to auscultation bilaterally. Abdomen is soft, bowel sounds positive, nontender, no organomegaly. Extremities have no ankle edema. Neurologic exam: Motor function is remarkable for being 5/5 in both lower extremities but only a conflicts analyst strength of 3/5 on the right and 4/5 on the left. Cranial nerves 2-12 test intact. There is no discernible asymmetry in sensation on the face, the arms, the hands, the feet or the legs. Deep tendon reflexes are symmetric. Finger to nose pointing is normal. Dysmetria testing of the lower extremities is normal. Reflexes are somewhat hyperactive on the left leg compared to the right leg. This difference seems to fatigue with repetition. There is no tremor. Discharge Providers Provider Date of admission: 04/04/25 14:44 Primary care physician: James Milan MD Discharge provider: Kyle Anne MD Summary Hospital Course Hospital Course: Possible TIA, present on admission. Active. -symptoms are quite atypical, raising suspicion for alternative diagnosis including brain mass, migraine equivalent, zoster encephalitis. -echocardiogram and brain MRI pending -check lipids -monitor blood pressure carefully -if symptoms recur we will trial her on Imitrex as these episodes of numbness have escalated along with a recent escalation in migraine headaches. -consider LP for CSF zoster studies. -she has an upcoming outpatient neurology appointment due to recent escalation of migraines. Migraine headaches, present on admission. Active. -Nurtec at home -trial of Imitrex -follow up with Neurology next week Recent episode of ocular zoster, present on admission. Chronic. -continue valacyclovir DVT prevention -recent extended flight back from [place] without signs or symptoms of PE/DVT. -SCD while in bed. She is quite mobile. Exam Vital Signs (past 8 hours): - 04/05/25 00:00 04/05/25 03:10 Temperature 97.2 F L 97.3 F L Pulse Rate 56 L 59 L Respiratory Rate 14 18 Blood Pressure 130/74 137/80 Pulse Oximetry 97 98 Oxygen Flow Rate 0 Oxygen Delivery Method Room Air Oxygen Flow Rate 0 Objective Labs 04/04/25 13:25 04/04/25 13:25 Labs: Laboratory Results - last 24 hr 04/04/25 04/04/25 04/05/25 13: 13:57 05:31 WBC 9.2 RBC 4.85 Hgb 15.0 Hct 44.2 MCV 91.1 MCH 30.9 MCHC 34.0 RDW 14.3 Plt Count 188 Neut % (Auto) 73.8 Lymph % (Auto) 19.4 L [place] % (Auto) 5.5 Eos % (Auto) 1.0 L Baso % (Auto) 0.3 Neut # (Auto) 6800 Lymph # (Auto) 1800 [place] # (Auto) 500 Eos # (Auto) 100 Baso # (Auto) 0 PT 10.6 INR 0.9 APTT 27 Sodium 138 Potassium 4.1 Chloride 105 Carbon Dioxide 26 BUN 18 H Creatinine 0.69 Estimated GFR > 60 BUN/Creatinine Ratio 26.1 H Glucose 103 H Calcium 9.0 Total Bilirubin 0.8 AST 29 ALT 20 Alkaline Phosphatase 84 Total Creatine Kinase 60 Troponin I < 0.012 Total Protein 7.0 Albumin 4.3 Globulin 2.7 Albumin/Globulin Ratio 1.6 Triglycerides 100 Cholesterol 164 LDL Cholesterol, Calc 98 HDL Cholesterol 46 Urine Color Yellow Urine Appearance Clear Urine pH 6.0 Ur Specific [place] 1.010 Urine Protein Negative Urine Glucose (UA) Negative Urine Ketones Negative Urine Occult Blood Negative Urine Nitrate Negative Urine Bilirubin Negative Urine Urobilinogen 1.0 Ur Leukocyte Esterase Negative Urine RBC 0-1/hpf Urine WBC 0-1/hpf Ur Squamous Epith Cells 0-1 /hpf Urine Bacteria Occasional (0-1) Urine Mucus 1+ H Ur Culture Indicated? Cult not indicated Vol Urine Centrifuged 10ml (spun) PFSH Medical History (Updated 04/04/25 @ 18:22 by Kyle Anne MD) Herpes zoster of eye Migraine Asymptomatic microscopic hematuria Atrophic vaginitis Vaginal pain Recurrent urinary tract infection Vaginal ulceration History of breast cancer History of tobacco use Microscopic hematuria Left lower quadrant abdominal pain Right flank pain Interstitial cystitis Inflammatory bowel disease Chronic urinary tract infection Cancer of breast Surgical History (Updated 04/04/25 @ 18:23 by Kyle Anne MD) History of tonsillectomy History of knee replacement H/O mastectomy History of breast biopsy Family History (Updated 04/04/25 @ 18:23 by Kyle Anne MD) Mother Cancer CAD (coronary artery disease) Father Cirrhosis Social History marital status: household members: spouse Smoking Status: Former smoker alcohol intake: current caffeine: Yes (pepsi) Discharge Plan Discharge Plan Patient Disposition: Home Discharge orders & Medications Prescriptions: No Action valacyclovir 1 gram tablet 1,000 mg PO DAILY latanoprost 0.005 % drops 1 drp EYE-LEFT QPM dorzolamide-timolol 22.3-6.8 mg/mL drops 1 drp EYE-LEFT BID difluprednate 0.05 % drops 1 drp EYE-LEFT BID meloxicam 15 mg tablet 15 mg PO DAILY acetaminophen [Tylenol Extra Strength] 500 mg tablet 500 mg PO DAILY zolpidem [Ambien] 5 mg tablet 2.5 mg PO BEDTIME Follow up/Referrals: James Milan MD [Primary Care Provider, [facility]] Visit Report/Discharge Packet Stand Alone Forms: Patient Portal/API, Stroke Signs & Symptoms Discharge Data Primary Care Provider: James Milan Attending Provider: Kyle Anne Admit Date/Time: 04/04/25 14:44 Quality VTE Deep Vein Thrombosis/Pulmonary Embolism Present on Admission: No
[2025-04-05] MEDS: MELOXICAM 7.5 MG TABLET 15 MG PO (08:39)
[2025-04-05] MEDS: SODIUM CHLORIDE 0.9% FLUSH 10 ML IV ×2 (08:42→20:24)
[2025-04-05 11:00] VITALS: BP 135/72; PULSE 60; RESP 16; TEMP 36.3; O2SAT 97
[2025-04-05 15:00] VITALS: BP 117/74; PULSE 58; RESP 18; TEMP 36.1; O2SAT 98
--- NOTE | 2025-04-05 15:53 | CM.DANOTE ---
Patient is a 79 yo female who was admitted OBS Status on 04/04/25 for Numbness/Tingling. Pt has [employer] for insurance and her PCP is Dr. James Milan. EMR was reviewed. Per MD, pt with hx of chronic UTI, breast CA, migraines and admitted for TIA vs possible tumor r/o. MRI pending to determine needs. possible discharge later this evening pending imaging results. SW met bedside briefly with pt and explained role and she confirms she lives at home in [place] with her spouse and is very active and independent at baseline. Pt still works as a Realtor and recently went on a trip to [facility]. Pt drives and does not use DME for ambulation and denies hx of HH or SNF. Preference is home this evening if stable and confirms spouse will transport. Pt does not anticipate any d/c needs at this time. VINAY Ewing Discharge Planning/Care Management CM Discharge Assessment Start: 04/04/25 14:49 Freq: Status: Active Protocol: Document 04/05/25 15:52 BF (Rec: 04/05/25 15:53 BF [id number]) Discharge Planning Assessment Assigned Discharge VINAY [employer] Provider James Milan Insurance Medicare DPOA/Assigned spouse Jeffrey Designee Name Contact Information [phone] Advance Directives? Yes Advance Directives No on File History Provided By Patient,Medical Record Has Patient been No admitted in last 30 days? Prior Living House Arrangements Household Members spouse Type of Drives own vehicle transporation used prior to admit Independent with ADL Yes 's Is patient alert and Yes oriented? Caregiver for No Another Barriers to No Discharge Discharge Plan Home Transportation Spouse plans to transport Arrangement Referrals Initiated None needed Whiteboard Updated Yes in Patient Room with name and ext. # of Supervisor Testing Review Status In Process Please Provide Date 04/05/25 Initial DC Assessment Was Performed Next Review Type Continued Stay Review
--- NOTE | 2025-04-05 17:17 | DI.MRI.S_ITS ---
PROCEDURE: MR HEAD/BRAIN WO CON INDICATIONS: TIA TECHNIQUE: Non-contrast axial T1 spin echo, axial T2 fast spin echo, sagittal and axial FLAIR, coronal T2 fast spin echo, axial gradient echo, axial diffusion and ADC through the brain. COMPARISON: [facility], MR, MR HEAD/BRAIN WO/W CON, 11/08/2020, 14:26. [facility], CT, CT ANGIO HEAD AND NECK, 04/04/2025, 13:50. [facility], CT, CT HEAD/BRAIN WO CON, 04/04/2025, 13:50. FINDINGS: Image quality: Diagnostic, with note made of motion artifact. CSF spaces: Ventricles appear symmetric in size and shape. Basal cisterns are patent. No extra-axial fluid collections. Brain: No intracranial bleeds or mass effects. There is cerebral volume loss for age. There are periventricular and deep white matter chronic small vessel ischemic changes. Brainstem appears normal. Diffusion-weighted images show no acute infarct. No chronic ischemic insults. Normal intravascular flow voids are present. Skull and face: Calvarial bone marrow is normal in signal. Orbits are normal. Note is made of bilateral lens replacements. Incidental note is made of hyperostosis frontalis. This is not considered to be pathologic in a woman of this age. Sinuses: Sinuses and mastoids are clear. IMPRESSION: No findings of acute or subacute infarction can be seen. Dictated by: Bernard Koroma M.D. on 04/05/2025 at 14:31 Approved by: Bernard Koroma M.D. on 04/05/2025 at 14:32
--- NOTE | 2025-04-05 17:26 | P.PN_ITS ---
Subjective Subjective Date Patient Seen: 04/05/25 Time Patient Seen: 17:26 Interval history: This is a 79-year-old female with a history of chronic UTI, interstitial cystitis, migraine headaches, IBD and breast cancer who presents with recurrent episodes of numbness in the right side of her face, the right upper arm and the right upper leg. This began just over 1 week ago. It seemed to become more frequent when she was enjoying a tourist trip to [place] last week and then in the last 2 days became somewhat stronger. Each episode lasts up to 2 hours and just kind of fades away on its own. At 1 point she felt that her right hand fingers were ?lifting up? on their own. She has also had increasing migraine headaches. She gets visual aura with those but says she has never had extremity or facial numbness with migraines before. She is on Nurtec for migraines. Also interesting is a recent history of left facial and ocular shingles infection. She has been on valacyclovir for 2-3 months and those symptoms seemed to be resolved. Two months ago she tripped and fell hitting the front of her head on a porch railing. She recalls having an evaluation in the ED in [place] at that time. Her CT head today shows no signs of acute bleed or mass. Her stroke score has been 0. Her blood pressure has been 151/75. She has no history of diabetes mellitus, hyperlipidemia or hypertension. 04/05/2025. Her echocardiogram today was normal. The MRI was done late in the afternoon with report showing the typical migraine vascular lesions only. I discussed this with her and the options of going home and following up with neurology next week versus staying overnight and getting an LP tomorrow were discussed. Unfortunately we have run out of time to do that tonight so she will have that done in the morning and decides to stay. She did have a brief episode of right facial numbness, very mild, along with right upper arm numbness this morning which did not respond to Imitrex although the migraine she was experiencing at the same time did resolve. Possible TIA, present on admission. Active. -symptoms are quite atypical, raising suspicion for alternative diagnosis including brain mass, migraine equivalent, zoster encephalitis. -echocardiogram is normal and brain MRI shows typical Migraine vascular lesions -chol 164 and LDL 98 -monitor blood pressure carefully -Trialed Imitrex this morning which worked for her migraine but not for the right face and right arm numbness -Will need LP for CSF zoster studies and MS studies including oligoclonal bands, IgG index and kappa free light chains. The MRI report came back after 5:00 p.m. so this will be arranged for 04/06. -she has an upcoming outpatient neurology appointment due to recent escalation of migraines. Migraine headaches, present on admission. Active. -Nurtec at home -trial of Imitrex was effective. -follow up with Neurology next week Recent episode of ocular zoster, present on admission. Chronic. -continue valacyclovir DVT prevention -recent extended flight back from [place] without signs or symptoms of PE/DVT. -SCD while in bed. She is quite mobile. Exam Vital Signs (past 8 hours): - 04/05/25 11:00 04/05/25 15:00 Temperature 97.4 F L 97.0 F L Pulse Rate 60 58 L Respiratory Rate 16 18 Blood Pressure 135/72 117/74 Pulse Oximetry 97 98 Oxygen Delivery Method Room Air Oxygen Flow Rate 0 Narrative Exam Narrative: There is no tactile difference in sensation between the slightly numb right upper arm, right upper face and the left side this morning. Heart is regular rate and rhythm without murmur. Lungs are clear to auscultation bilaterally. Extremities have no ankle edema. Motor function, sensation, all other neurologic testing is normal today. Objective Labs 04/04/25 13:25 04/04/25 13:25 Labs: Laboratory Results - last 24 hr 04/05/25 05:31 Triglycerides 100 Cholesterol 164 LDL Cholesterol, Calc 98 HDL Cholesterol 46 PFSH Medical History (Updated 04/04/25 @ 18:22 by Kyle Anne MD) Herpes zoster of eye Migraine Asymptomatic microscopic hematuria Atrophic vaginitis Vaginal pain Recurrent urinary tract infection Vaginal ulceration History of breast cancer History of tobacco use Microscopic hematuria Left lower quadrant abdominal pain Right flank pain Interstitial cystitis Inflammatory bowel disease Chronic urinary tract infection Cancer of breast Surgical History (Updated 04/04/25 @ 18:23 by Kyle Anne MD) History of tonsillectomy History of knee replacement H/O mastectomy History of breast biopsy Family History (Updated 04/04/25 @ 18:23 by Kyle Anne MD) Mother Cancer CAD (coronary artery disease) Father Cirrhosis Social History marital status: household members: spouse Smoking Status: Former smoker alcohol intake: current caffeine: Yes (pepsi) Assessment & Plan Time-Based Coding :: [TOTAL MINUTES] spent with patient and on the chart (including review of chart, obtaining history, exam, reviewing outside data, placing orders, documenting exam and treatment plan, and counseling patient) on [DATE]. Quality VTE Deep Vein Thrombosis/Pulmonary Embolism Present on Admission: No
--- NOTE | 2025-04-05 17:52 | PC.NURSE ---
Pt independent in room States very mild headache as noted. SL intact/patent. LP scheduled for tomorrow Call light w/in reach, pt calls appropriately Continue w/ plan of care.
[2025-04-05 20:23] VITALS: BP 125/75; PULSE 60; RESP 18; TEMP 36.2; O2SAT 97
[2025-04-05] MEDS: ZOLPIDEM 5 MG TABLET 2.5 MG PO (20:23)
[2025-04-06] VITALS: BP 132/77; PULSE 63; RESP 18; TEMP 36.1; O2SAT 96
[2025-04-06 04:00] VITALS: BP 116/76; PULSE 74; RESP 18; TEMP 36.6; O2SAT 97
--- NOTE | 2025-04-06 07:04 | PM.PN.1 ---
Subjective Subjective Date Patient Seen: 04/06/25 Interval history: This is a 79-year-old female with a history of chronic UTI, interstitial cystitis, migraine headaches, IBD and breast cancer who presents with recurrent episodes of numbness in the right side of her face, the right upper arm and the right upper leg. This began just over 1 week ago. It seemed to become more frequent when she was enjoying a tourist trip to [place] last week and then in the last 2 days became somewhat stronger. Each episode lasts up to 2 hours and just kind of fades away on its own. At 1 point she felt that her right hand fingers were ?lifting up? on their own. She has also had increasing migraine headaches. She gets visual aura with those but says she has never had extremity or facial numbness with migraines before. She is on Nurtec for migraines. Also interesting is a recent history of left facial and ocular shingles infection. She has been on valacyclovir for 2-3 months and those symptoms seemed to be resolved. Two months ago she tripped and fell hitting the front of her head on a porch railing. She recalls having an evaluation in the ED in [place] at that time. Her CT head today shows no signs of acute bleed or mass. Her stroke score has been 0. Her blood pressure has been 151/75. She has no history of diabetes mellitus, hyperlipidemia or hypertension. 04/05/2025. Her echocardiogram today was normal. The MRI was done late in the afternoon with report showing the typical migraine vascular lesions only. I discussed this with her and the options of going home and following up with neurology next week versus staying overnight and getting an LP tomorrow were discussed. Unfortunately we have run out of time to do that tonight so she will have that done in the morning and decides to stay. She did have a brief episode of right facial numbness, very mild, along with right upper arm numbness this morning which did not respond to Imitrex although the migraine she was experiencing at the same time did resolve. Possible TIA, present on admission. Active. -symptoms are quite atypical, raising suspicion for alternative diagnosis including brain mass, migraine equivalent, zoster encephalitis. -echocardiogram is normal and brain MRI shows typical Migraine vascular lesions -chol 164 and LDL 98 -monitor blood pressure carefully -Trialed Imitrex this morning which worked for her migraine but not for the right face and right arm numbness -Will need LP for CSF zoster studies and MS studies including oligoclonal bands, IgG index and kappa free light chains. The MRI report came back after 5:00 p.m. so this will be arranged for 04/06. -she has an upcoming outpatient neurology appointment due to recent escalation of migraines. Migraine headaches, present on admission. Active. -Nurtec at home -trial of Imitrex was effective. -follow up with Neurology next week Recent episode of ocular zoster, present on admission. Chronic. -continue valacyclovir DVT prevention -recent extended flight back from [place] without signs or symptoms of PE/DVT. -SCD while in bed. She is quite mobile. Exam Vital Signs (past 8 hours): - 04/06/25 00:00 04/06/25 04:00 Temperature 97 F L 98 F Pulse Rate 63 74 Respiratory Rate 18 18 Blood Pressure 132/77 116/76 Pulse Oximetry 96 97 Oxygen Flow Rate 0 0 Oxygen Delivery Method Room Air Oxygen Flow Rate 0 Objective Labs 04/04/25 13:25 04/04/25 13:25 COUNTS INCLUDE 234 BEDS AT [facility] Medical History (Updated 04/04/25 @ 18:22 by Kyle Anne MD) Herpes zoster of eye Migraine Asymptomatic microscopic hematuria Atrophic vaginitis Vaginal pain Recurrent urinary tract infection Vaginal ulceration History of breast cancer History of tobacco use Microscopic hematuria Left lower quadrant abdominal pain Right flank pain Interstitial cystitis Inflammatory bowel disease Chronic urinary tract infection Cancer of breast Surgical History (Updated 04/04/25 @ 18:23 by Kyle Anne MD) History of tonsillectomy History of knee replacement H/O mastectomy History of breast biopsy Family History (Updated 04/04/25 @ 18:23 by Kyle Anne MD) Mother Cancer CAD (coronary artery disease) Father Cirrhosis Social History marital status: household members: spouse Smoking Status: Former smoker alcohol intake: current caffeine: Yes (pepsi) Assessment & Plan Time-Based Coding :: [TOTAL MINUTES] spent with patient and on the chart (including review of chart, obtaining history, exam, reviewing outside data, placing orders, documenting exam and treatment plan, and counseling patient) on [DATE]. Quality VTE Deep Vein Thrombosis/Pulmonary Embolism Present on Admission: No
--- NOTE | 2025-04-06 07:05 | P.DS_ITS ---
History of Present Illness History of Present Illness Date Patient Seen: 04/06/25 Chief complaint: numbness in chin, arm, legs right side Narrative: This is a 79-year-old female with a history of chronic UTI, interstitial cystitis, migraine headaches, IBD and breast cancer who presents with recurrent episodes of numbness in the right side of her face, the right upper arm and the right upper leg. This began just over 1 week ago. It seemed to become more frequent when she was enjoying a tourist trip to [place] last week and then in the last 2 days became somewhat stronger. Each episode lasts up to 2 hours and just kind of fades away on its own. At 1 point she felt that her right hand fingers were ?lifting up? on their own. She has also had increasing migraine headaches. She gets visual aura with those but says she has never had extremity or facial numbness with migraines before. She is on Nurtec for migraines. Also interesting is a recent history of left facial and ocular shingles infection. She has been on valacyclovir for 2-3 months and those symptoms seemed to be resolved. Two months ago she tripped and fell hitting the front of her head on a porch railing. She recalls having an evaluation in the ED in [place] at that time. Her CT head today shows no signs of acute bleed or mass. Her stroke score has been 0. Her blood pressure has been 151/75. She has no history of diabetes mellitus, hyperlipidemia or hypertension. Discharge Providers Provider Date of admission: 04/04/25 14:44 Discharge Date: 04/06/25 Primary care physician: James Milan MD Discharge provider: Kyle Anne MD Summary Hospital Course Hospital Course: Suspected TIA ruled out Rule out Zoster Encephalitis/Multiple Sclerosis -symptoms are quite atypical, raising suspicion for alternative diagnosis including brain mass, migraine equivalent, zoster encephalitis. -echocardiogram is normal and brain MRI shows typical Migraine vascular lesions -chol 164 and LDL 98 -Trialed Imitrex which worked for her migraine but not for the right face and right arm numbness -Pending CSF zoster studies and MS studies including oligoclonal bands, IgG index and kappa free light chains. -she has an upcoming outpatient neurology appointment due to recent escalation of migraines. The send out results from the LP can be reviewed at that visit. Migraine headaches, present on admission. Active. -Nurtec at home -trial of Imitrex was effective. -follow up with Neurology next week Recent episode of ocular zoster, present on admission. Chronic. -continue valacyclovir Status at Discharge Cognitive/behavioral status at discharge: oriented Functional status at discharge: independent ambulation Overall status at discharge: patient is back to baseline Time Spent with Patient Time spent: Less than 30 minutes Exam Vital Signs (past 8 hours): - 04/06/25 00:00 04/06/25 04:00 Temperature 97 F L 98 F Pulse Rate 63 74 Respiratory Rate 18 18 Blood Pressure 132/77 116/76 Pulse Oximetry 96 97 Oxygen Flow Rate 0 0 Oxygen Delivery Method Room Air Oxygen Flow Rate 0 Narrative Exam Narrative: Alert and oriented x3. No apparent distress. Heart is regular rate and rhythm without murmur. Lungs are clear to auscultation bilaterally. Extremities have no ankle edema. CSF shows 18 RBC, 1 WBC, glucose 64, protein 103. Send out studies are pending. No recurrence of the right arm, right leg or facial numbness today. Objective Labs 04/04/25 13:25 04/04/25 13:25 PFS Medical History (Updated 04/04/25 @ 18:22 by Kyle Anne MD) Herpes zoster of eye Migraine Asymptomatic microscopic hematuria Atrophic vaginitis Vaginal pain Recurrent urinary tract infection Vaginal ulceration History of breast cancer History of tobacco use Microscopic hematuria Left lower quadrant abdominal pain Right flank pain Interstitial cystitis Inflammatory bowel disease Chronic urinary tract infection Cancer of breast Surgical History (Updated 04/04/25 @ 18:23 by Kyle Anne MD) History of tonsillectomy History of knee replacement H/O mastectomy History of breast biopsy Family History (Updated 04/04/25 @ 18:23 by Kyle Anne MD) Mother Cancer CAD (coronary artery disease) Father Cirrhosis Social History marital status: household members: spouse Smoking Status: Former smoker alcohol intake: current caffeine: Yes (pepsi) Discharge Plan Discharge Plan Patient Disposition: Home Provider Discharge Comment: Follow up with neurology next week Nursing Discharge Comment: Limit mobility for today due to lumbar puncture. Activity as tolerated 04/07/25 Discharge orders & Medications Prescriptions: New sumatriptan succinate [Imitrex] 25 mg Tablet 50 mg PO Q2H PRN (Reason: Face Numbness) Qty: 10 0RF Continued valacyclovir 1 gram tablet 1,000 mg PO DAILY latanoprost 0.005 % drops 1 drp EYE-LEFT QPM dorzolamide-timolol 22.3-6.8 mg/mL drops 1 drp EYE-LEFT BID difluprednate 0.05 % drops 1 drp EYE-LEFT BID meloxicam 15 mg tablet 15 mg PO DAILY acetaminophen [Tylenol Extra Strength] 500 mg tablet 500 mg PO DAILY zolpidem [Ambien] 5 mg tablet 2.5 mg PO BEDTIME Follow up/Referrals: James Milan MD [Primary Care Provider, [facility]] Diet/Activity/Treatments Diet: Regular Skin/Wound/Dressing Care Report to your healthcare provider any signs of infection, such as:: chills, fever, increased pain, unusual drainage and unusual redness Visit Report/Discharge Packet Instructions: Shingles (Herpes Zoster) (Alternative Therapy), Transient Ischemic Attack, Shingles, DI for Lumbar Puncture Stand Alone Forms: Patient Portal/API, Stroke Signs & Symptoms Discharge Data Primary Care Provider: James Milan Attending Provider: Kyle Anne Admit Date/Time: 04/04/25 14:44 Quality VTE Deep Vein Thrombosis/Pulmonary Embolism Present on Admission: No
[2025-04-06 07:50] VITALS: BP 125/80; PULSE 63; RESP 16; TEMP 36.6; O2SAT 96
[2025-04-06] MEDS: MELOXICAM 7.5 MG TABLET 15 MG PO (08:26)
[2025-04-06] MEDS: SODIUM CHLORIDE 0.9% FLUSH 10 ML IV (09:00)
[2025-04-06] MEDS: CALCIUM CARBONATE 500 MG TAB 1000 MG PO (09:03)
--- NOTE | 2025-04-06 10:39 | CM.DPNOTE ---
DCP Continued: Reviewed EMR and team rounds for pt?s medical status. Per hospitalist, pt scheduled for a lumbar puncture today for concerns of MS testing due to symptoms presented earlier in admission. No needs identified at this time, pt spouse to transport home. Plan: Anticipating dc home with spouse on 04/06. CM Team will continue to follow for coordination of discharge plans. ROBB Blake
[2025-04-06 11:00] VITALS: BP 123/76; PULSE 54; RESP 18; TEMP 36.2; O2SAT 97
--- NOTE | 2025-04-06 11:30 | DI.RAD.S_ITS ---
PROCEDURE: FL GUIDED LUMBAR PUNCTURE LP INDICATIONS: Zoster encephalitis COMPARISON: None. TECHNIQUE: The indications, alternatives, benefits, risks, and complications were explained to the patient. Written informed consent was obtained and placed in the chart. The patient was placed in a prone position on the fluoroscopy table, and a level was chosen for percutaneous access under fluoroscopic guidance. The site was prepped and draped in a sterile fashion. After local anaesthetic, a spinal needle was then used to enter the intrathecal space, with return of cerebrospinal fluid. After obtaining sufficient fluid, the needle was then withdrawn, and a bandage applied to the puncture site. FINDINGS: Puncture level: L4-L5 Needle: Spinal needle. Opening pressure: Not requested. CSF volume and description: 16.5 cc obtained with gentle aspiration. Medications: 1% lidocaine for anaesthesia. Complications: None. Laboratories: As ordered by referring clinician. IMPRESSION: Successful fluoroscopically guided lumbar puncture. Dictated by: Wood Coronado M.D. on 04/06/2025 at 13:34 Approved by: Wood Coronado M.D. on 04/06/2025 at 13:35
[2025-04-06] MEDS: LIDOCAINE 1% 20 ML INJ (12:53)
[2025-04-06 13:15] LABS: CSF Tube Volume 3.0 mL; Red Blood Cell CSF 18 RBC /uL (0-5); White Blood Cell CSF 1 MONO/uL (0-5)
[2025-04-09 13:16] LABS: Albumin 4.2 g/dL (3.8-4.8); IgG Quant, Serum 799 mg/dL (586-1602); IgG, Quant, CSF 5.1 mg/dL (0.0-6.7); IgG/ Albumin Ratio, CSF 0.10 (0.00-0.25)
[2025-04-09 17:10] LABS: Free Kappa Lt Chains, Serum 10.0 mg/L (3.3-19.4); Free Lambda Lt Chains,Serum 8.9 mg/L (5.7-26.3)
== END 2025-04-06 14:55 | disposition home or self-care (01) ==
LOC: ED 13:34 → AC 14:44
PROVIDERS: Admitting Provider Family Medicine; Emergency Provider Emergency Medicine; Family Provider Family Medicine; PCP Family Medicine; Referring Provider Emergency Medicine; Visit Provider Family Medicine
DX: R20.0 Anesthesia of skin (principal); R29.700 NIHSS score 0; G43.109 Migraine with aura, not intractable, without status migrainosus; Z85.3 Personal history of malignant neoplasm of breast; Z87.440 Personal history of urinary (tract) infections; Z87.891 Personal history of nicotine dependence; Z86.19 Personal history of other infectious and parasitic diseases
CPT/HCPCS: 36415; 62328; 70450; 70496; 70498; 70551; 80053; 80061; 81001; 82040; 82042; 82550; 82784; 82945; 83883; 84157; 84484; 85025; 85610; 85730; 87070; 87205; 89051; 93005; 99284; G0378; C8929; Q9957; Q9967